=== PATIENT | female | born 1950 | race Caucasian/White ===

== ENCOUNTER 2017-02-10 08:44 | Emergency (ER) | payer OTHER, BC ==
[2017-02-10 08:48] VITALS: TEMP 98.2
--- NOTE | 2017-02-10 10:19 | EDPHY ---
H & P Stated Complaint: Flu like sxs;wants flu test - Personal History Current Tetanus Diphtheria and Acellular Pertussis (TDAP): Yes - Medical/Surgical History Other PMH: healthy - Social History Smoking Status: Never smoked HPI/ROS: Chief complaint: Flu symptoms History of present illness: This is a 66-year-old female who presents to the emergency department for flu symptoms. She reports the onset of symptoms yesterday including fevers and chills, sore throat, cough, body aches. She denies other associated signs or symptoms including no trouble breathing, no headache or neck pain, no rash. She did receive the flu shot this year. Review of systems: A 10 point review of systems was obtained and other than described above was negative (Rickie Frances) - Physical Exam Exam: General Appearance: Alert, nontoxic. Eyes: Pupils equal and round no pallor or injection. ENT, Mouth: Tympanic membranes, external auditory canals, external ears and surrounding soft tissue including over the mastoids are unremarkable. Nasopharynx is not injected. There is no rhinorrhea. Oropharynx is mildly injected. There is no edema. There is no exudate. There is no asymmetry. The uvula is midline. No elevation of the tongue. There is no hoarseness, no drooling, no trismus, no stridor. Respiratory: There are no retractions, lungs are clear to auscultation. Cardiovascular: Regular rate and rhythm. Neurological: Alert and oriented x4. Strength and sensation intact and symmetrical. No meningismus. Skin: Warm and dry, no rashes. Musculoskeletal: Neck is supple non tender. Extremities are symmetrical, full range of motion. Psychiatric: Patient is oriented X 3, there is no agitation. (Rickie Frances) Constitutional: Initial Vital Signs Temperature (C) 36.8 C 02/10/17 08:45 Heart Rate 88 02/10/17 08:45 Respiratory Rate 18 02/10/17 08:45 Blood Pressure 103/72 02/10/17 08:45 O2 Sat (%) 97 02/10/17 08:45 O2 Delivery Mode Room Air Allergies/Adverse Reactions: Penicillins Allergy (Unknown, Verified 02/10/17 08:48) Home Medications: Medication Instructions Recorded Oseltamivir Phosphate [Tamiflu 75 75 mg PO BID 5 Days cap 02/10/17 mg (*)] Medical Decision Making ED Course/Re-evaluation: Patient seen under the supervision of my secondary supervising physician Dr. Edda Cardoaz. Patient presents to the emergency department for flu-like symptoms. She is positive for flu A. She is nontoxic. Vital signs are stable. I believe she is appropriate for discharge home. Given she is 24 hr into symptoms I have discussed the use of Tamiflu. At this time she does not believe she wants to take it but will take a prescription just in case, she understands it is time sensitive to start within 48 hours. Home care is discussed. Return precautions are given. Patient voiced understanding and agreement with plan. ( Rickie Frances) The patient was evaluated and managed by the physician certified dental assistant. I have reviewed this chart and I agree with the findings and plan of care as documented , as indicated by my signature. I am the secondary supervising physician. ( Edda Cardoza) Differential Diagnosis: Included but not limited to influenza a, influenza B, bronchitis, pneumonia, URI (Rickie Frances) Departure - Departure Disposition: Home, Routine, Self-Care Clinical Impression: Influenza A Condition: Good Instructions: Influenza (ED) Additional Instructions: Follow-up with your primary care doctor this week for recheck Use [id number] ibuprofen, cold medication and nasal steroid as discussed If symptoms worsen or new symptoms develop return to the emergency room for recheck Referrals: EMILI BRAN [Other] - As per Instructions Stand Alone Forms: Airline Excuse Prescriptions: Oseltamivir Phosphate [Tamiflu 75 mg (*)] 75 mg PO BID 5 Days cap
[2017-02-10 10:32] VITALS: BP 101/74; PULSE 87; RESP 16; O2SAT 95
== END 2017-02-10 10:31 | disposition home or self-care (01) ==
DX: J10.1 Influenza due to other identified influenza virus with other respiratory manifestations (principal)